=== PATIENT | male | born 1990 | race Caucasian/White ===

== ENCOUNTER 2020-05-25 20:14 | Observation (INO) ==
[2020-05-25] MEDS ORDERED: Naloxone 0.4 MG/ML INJ IVP PRN (22:14)
[2020-05-25] MEDS ORDERED: Ondansetron 4 MG/2 ML VIAL IVP PRN (22:14)
[2020-05-25] MEDS ORDERED: 0.9 % Sodium Chloride 1,000 ML IVC SCH (22:15)
[2020-05-25] MEDS ORDERED: *HR* LORazepam 2 MG/ML VIAL IVP PRN ×3 (22:15)
[2020-05-25] MEDS ORDERED: Thiamine (B-1) 100 MG, Folic Acid 1 MG, MVI, adult with vitamin K 10 ML in 0.9 % Sodi... IVPB SCH (23:00)
[2020-05-26 03:02] LABS: Hemoglobin 15.8 g/dL (12.9-16.9); Mean Corpuscular HGB Conc 32.2 g/dL (31.6-35.5); Mean Corpuscular Hemoglobin 29.7 pg (28.0-33.3); Mean Corpuscular Volume 92.1 fL (83.0-100.0); Mean Platelet Volume 10.9 fL (9.4-12.4); Platelet Count 217 K/mcL (140-400); Red Blood Count 5.32 M/mcL (4.19-5.50); Red Cell Distribution Width 13.2 % (11.5-14.5); White Blood Count 11.5 K/mcL (4.3-11.1)
[2020-05-26 03:22] LABS: BUN/Creatinine Ratio 8 (6-26); Blood Urea Nitrogen 9 mg/dL (6-20); Calcium 8.9 mg/dL (8.6-10.3); Carbon Dioxide 23 mEq/L (23-29); Chloride 111 mEq/L (98-107); Glucose 86 mg/dL (70-105); Osmolality,Calculated 292 (280-300); Potassium 4.1 mEq/L (3.5-5.1); Sodium 142 mEq/L (136-145); eGFR For African Americans > 60 (> 60); eGFR For Non-African Americans > 60 (> 60)
[2020-05-26 14:49] VITALS: BP 111/68
== END 2020-05-26 18:11 ==
LOC: 3BNU 20:14 → EMEROOARM 20:14 → SUATTDRO 22:24 → 3BNU 23:10
PROVIDERS: ADMIT Internal Medicine; ATTEND Internal Medicine

== ENCOUNTER 2020-05-26 17:51 | Inpatient (IN) ==
[2020-05-26] MEDS ORDERED: Mag Hydrox/Al Hydrox/Simeth 30 ML UDC PO PRN (18:04)
[2020-05-26] MEDS ORDERED: Haloperidol Lactate 5 MG/ML VIAL IM PRN (18:04)
[2020-05-26] MEDS ORDERED: Ibuprofen 400 MG TABLET PO PRN (18:04)
[2020-05-26] MEDS ORDERED: haloperidoL 5 MG TABLET PO PRN (18:04)
[2020-05-26] MEDS ORDERED: hydrOXYzine pamoate 25 MG CAPSULE PO PRN (18:04)
[2020-05-26] MEDS ORDERED: traZODone 50 MG TABLET PO PRN (18:04)
[2020-05-26] MEDS ORDERED: *HR* LORazepam 2 MG/ML VIAL IM PRN (18:04)
[2020-05-26] MEDS ORDERED: MOM Conc 10 ML UD.LIQ PO PRN (18:04)
[2020-05-26] MEDS ORDERED: *HR* LORazepam 1 MG TABLET PO PRN (18:04)
[2020-05-27] MEDS: Vitamin B Complex/Vit C/Vit E 1 EACH TABLET PO SCH (09:48)
[2020-05-27] MEDS: BuPROPion XL (24 HR) 150 MG TABLET PO SCH (09:48)
[2020-05-28] MEDS: Vitamin B Complex/Vit C/Vit E 1 EACH TABLET PO SCH (08:27)
[2020-05-28] MEDS: BuPROPion XL (24 HR) 150 MG TABLET PO SCH (08:27)
[2020-05-28 08:34] VITALS: BP 122/78
== END 2020-05-28 10:30 | disposition home or self-care (01) | DRG 885 ==
LOC: 1ANU 17:51
PROVIDERS: ADMIT Psychiatry & Neurology Psychiatry; ATTEND Psychiatry & Neurology Psychiatry

== ENCOUNTER 2021-03-21 00:10 | Inpatient (IN) ==
[2021-03-21 00:50] LABS: Bilirubin,Urine Negative (Negative); Blood,Urine Negative (Negative); Clarity,Urine Clear (Clear); Color,Urine Yellow (Yellow); Glucose,Urine (UA) Normal (Normal); Ketones,Urine 10 mg/dL (Negative); Leukocyte Esterase,Urine Negative (Negative); Mucus,Urine Few per lpf (None-Few); Nitrite,Urine Negative (Negative); Protein,Urine 70 mg/dL (Neg-Trace); Specific Gravity,Urine > 1.030 (1.010-1.025); WBC,Urine 0-3 per hpf (0-3)
[2021-03-21 00:50] LABS: Basophils % 0.3 %; Eosinophils % 0.3 %; Hematocrit 52.3 % (37.5-50.1); Hemoglobin 17.7 g/dL (12.9-16.9); Immature Granulocytes % 0.2 % (0-4); Lymphocytes # 2.4 K/mcL (0.6-4.6); Lymphocytes % 19.1 %; Mean Corpuscular HGB Conc 33.8 g/dL (31.6-35.5); Mean Corpuscular Hemoglobin 30.7 pg (28.0-33.3); Mean Corpuscular Volume 90.6 fL (83.0-100.0); Mean Platelet Volume 11.3 fL (9.4-12.4); Monocytes # 0.8 K/mcL (0.0-1.3); Monocytes % 6.8 %; Neutrophils # 9.1 K/mcL (1.6-8.9); Platelet Count 202 K/mcL (140-400); Red Blood Count 5.77 M/mcL (4.19-5.50); Red Cell Distribution Width 12.2 % (11.5-14.5); Segmented Neutrophils % 73.3 %; White Blood Count 12.4 K/mcL (4.3-11.1)
[2021-03-21 00:53] LABS: Amphetamine Screen,Urine Negative ng/mL (Cutoff=1000); Barbiturate Screen,Urine Negative ng/mL (Cutoff=200); Benzodiazepines Screen,Urine Negative ng/mL (Cutoff=200); Cannabinoid Screen,Urine Negative ng/mL (Cutoff = 50); Cocaine Screen,Urine Negative ng/mL (Cutoff= 300); Opiate Screen,Urine Negative ng/mL (Cutoff=300); Phencyclidine Screen,Urine Negative ng/mL (Cutoff=25)
[2021-03-21 01:03] LABS: Acetaminophen < 10 mcg/mL (10-20); BUN/Creatinine Ratio 9 (6-26); Blood Urea Nitrogen 10 mg/dL (6-20); Calcium 9.8 mg/dL (8.6-10.3); Carbon Dioxide 27 mEq/L (23-29); Chloride 103 mEq/L (98-107); Ethanol < 10 mg/dL (Less than 10); Glucose 122 mg/dL (70-105); Osmolality,Calculated 288 (280-300); Potassium 3.9 mEq/L (3.5-5.1); Salicylate < 2.5 mg/dL (15.0-30.0); Sodium 139 mEq/L (136-145); eGFR For African Americans > 60 (> 60); eGFR For Non-African Americans > 60 (> 60)
[2021-03-21] MEDS ORDERED: *HR* LORazepam 2 MG/ML VIAL IM PRN (02:02)
[2021-03-21] MEDS ORDERED: hydrOXYzine pamoate 25 MG CAPSULE PO PRN (02:02)
[2021-03-21] MEDS ORDERED: Mag Hydrox/Al Hydrox/Simeth 30 ML UDC PO PRN (02:02)
[2021-03-21] MEDS ORDERED: Ibuprofen 400 MG TABLET PO PRN (02:02)
[2021-03-21] MEDS ORDERED: *HR* LORazepam 1 MG TABLET PO PRN (02:02)
[2021-03-21] MEDS ORDERED: MOM Conc 10 ML UD.LIQ PO PRN (02:02)
[2021-03-21] MEDS ORDERED: haloperidoL 5 MG TABLET PO PRN (02:02)
[2021-03-21] MEDS ORDERED: traZODone 50 MG TABLET PO PRN (02:02)
[2021-03-21] MEDS ORDERED: Nicotine 2 MG GUM BC PRN (02:02)
[2021-03-21] MEDS ORDERED: Haloperidol Lactate 5 MG/ML VIAL IM PRN (02:02)
[2021-03-21] MEDS: BuPROPion XL (24 HR) 150 MG TABLET PO SCH (13:51)
[2021-03-22] MEDS: BuPROPion XL (24 HR) 150 MG TABLET PO SCH (09:40)
[2021-03-23] MEDS: BuPROPion XL (24 HR) 150 MG TABLET PO SCH (09:12)
[2021-03-23 09:54] VITALS: BP 138/86
== END 2021-03-23 15:50 | disposition home or self-care (01) | DRG 885 ==
LOC: EMEROOARM 00:10 → SUATTDRO 01:51 → 1ANU 01:51
PROVIDERS: ADMIT Psychiatry & Neurology Psychiatry; ATTEND Psychiatry & Neurology Forensic Psychiatry